=== PATIENT | male | born 1965 | race Caucasian/White ===

== ENCOUNTER 2018-04-30 02:03 | Emergency (ER) | payer OTHER ==
[~2018-04-30] VITALS: Ht 182.9 cm; Wt 100.6 kg
[2018-04-30] MEDS ORDERED: LIDOcaine Viscous 15ml cup PO ONE (02:30)
[2018-04-30] MEDS ORDERED: mag hydrox/Alum hydrox/simeth 30ml oral suspension PO ONE (02:30)
[2018-04-30 02:41] LABS: COLOR,URINE YELLOW (Yellow); GLUCOSE, URINE NEGATIVE (Neg); KETONES,URINE 15 mg/dl (Neg); LEUKOCYTE ESTERASE ,URINE NEGATIVE (Neg); NITRITES, URINE NEGATIVE (Neg); OCCULT BLOOD,URINE NEGATIVE (Neg); PROTEIN,URINE NEGATIVE (Neg); UROBILINOGEN,URINE 0.2 E.U/dL (0.2-1.0)
[2018-04-30 02:47] LABS: CLARITY,URINE TURBID (Clear); UA COLLECTION TYPE CLN CATCH MIDSTREAM
[2018-04-30 02:48] LABS: BASOPHILS % (AUTO) 0.2 % (0-1); EOSINOPHILS # (AUTO) 0.1 X10'3 (0-0.9); EOSINOPHILS % (AUTO) 1.2 % (0-6); HEMATOCRIT 45.7 % (42.0-52.0); LYMPHOCYTES # (AUTO) 1.3 X10'3 (1.1-4.8); LYMPHOCYTES % (AUTO) 15.1 % (21-51); MEAN CORPUSCULAR HEMOGLOBIN 30.2 PG (27.0-31.0); MEAN CORPUSCULAR HGB CONC 32.8 % (33.0-36.5); MEAN PLATELET VOLUME 9.1 FL (7.4-10.4); MONOCYTES # (AUTO) 0.4 X10'3 (0-0.9); MONOCYTES % (AUTO) 5.2 % (2-12); NEUTROPHILS # (AUTO) 6.7 X10'3 (1.8-7.7); NEUTROPHILS % (AUTO) 78.3 % (42-75); PLATELET COUNT 209 X10'3 (140-440); RED BLOOD COUNT 4.96 X10'6 (4.70-6.10); RED CELL DISTRIBUTION WIDTH 12.7 % (11.5-14.5); WHITE BLOOD COUNT 8.5 X10'3 (4.5-11.0)
[2018-04-30 02:49] LABS: AMORPHOUS PHOSPHATES 4+; BACTERIA,URINE FEW /HPF (Neg); MUCUS STRANDS MODERATE /LPF (Neg); RBC,URINE NONE SEEN /HPF (0-2); SQUAMOUS EPITHELIAL CELL,UR NONE SEEN /LPF (FEW); WBC,URINE NONE SEEN /HPF (0-4)
[2018-04-30 02:52] LABS: PROTHROMBIN TIME 10.6 SECONDS (9.0-12.0)
[2018-04-30 02:55] LABS: ALANINE AMINOTRANSFERASE 42 U/L (12-78); ALBUMIN 4.4 G/DL (3.4-5.0); ALBUMIN/GLOBULIN RATIO 1.2 (1.1-1.5); ALKALINE PHOSPHATASE 41 IU/L (46-116); ANION GAP 10 (8-16); ASPARTATE AMINO TRANSFERASE 28 U/L (10-37); BILIRUBIN,TOTAL 0.6 MG/DL (0.1-1.0); BLOOD UREA NITROGEN 23 MG/DL (7-18); BUN/CREATININE RATIO 23.2 (5.4-32.0); CALCIUM 9.2 MG/DL (8.5-10.1); CHLORIDE 102 MMOL/L (99-107); CREATININE 0.99 MG/DL (0.60-1.10); GLUCOSE 111 MG/DL (70-104); POTASSIUM 3.6 MMOL/L (3.5-5.1); SODIUM 142 MMOL/L (135-145); TOTAL CARBON DIOXIDE 29.7 MMOL/L (24-32); TOTAL PROTEIN 8.1 G/DL (6.4-8.2); eGFR 80 ML/MIN
[2018-04-30] MEDS ORDERED: famotidine/PF 10 mg/ml inj IV ONE (03:10)
[2018-04-30 03:23] LABS: LIPASE 319 U/L (73-393)
[2018-04-30] MEDS ORDERED: FAMO-128 PO (03:46)
[2018-04-30 04:05] VITALS: BP 138/83
[2018-04-30] MEDS ORDERED: ketorolac trometh. 30mg/ml inj. IV ONE (04:05)
== END 2018-04-30 05:00 | disposition home or self-care (01) ==
LOC: ER 02:03
DX: R10.84 Generalized abdominal pain (principal); R10.13 Epigastric pain; R14.0 Abdominal distension (gaseous)
CPT/HCPCS: 36415; 74018; 80053; 81001; 83690; 85025; 85610; 96374; 96375; 99284; J1885; J3490

== ENCOUNTER → 2018-06-14 | Outpatient (CLI) | payer BC, OTHER ==
[~2018-06-14] MED LIST: FAMO-128 PO
[2018-06-14 10:53] LABS: BASOPHILS % (AUTO) 0.3 % (0-1); EOSINOPHILS # (AUTO) 0.1 X10'3 (0-0.9); EOSINOPHILS % (AUTO) 1.7 % (0-6); HEMATOCRIT 43.9 % (42.0-52.0); HEMOGLOBIN 15.4 g/dl (14.0-17.9); LYMPHOCYTES # (AUTO) 1.3 X10'3 (1.1-4.8); LYMPHOCYTES % (AUTO) 27.5 % (21-51); MEAN CORPUSCULAR HEMOGLOBIN 31.4 PG (27.0-31.0); MEAN CORPUSCULAR VOLUME 89.7 FL (78-98); MEAN PLATELET VOLUME 8.5 FL (7.4-10.4); MONOCYTES # (AUTO) 0.4 X10'3 (0-0.9); MONOCYTES % (AUTO) 9.7 % (2-12); NEUTROPHILS # (AUTO) 2.8 X10'3 (1.8-7.7); NEUTROPHILS % (AUTO) 60.8 % (42-75); PLATELET COUNT 232 X10'3 (140-440); RED BLOOD COUNT 4.89 X10'6 (4.70-6.10); RED CELL DISTRIBUTION WIDTH 13.3 % (11.5-14.5); WHITE BLOOD COUNT 4.6 X10'3 (4.5-11.0)
[2018-06-14 10:56] LABS: ALANINE AMINOTRANSFERASE 31 U/L (12-78); ALBUMIN 4.1 G/DL (3.4-5.0); ALBUMIN/GLOBULIN RATIO 1.1 (1.1-1.5); ALKALINE PHOSPHATASE 46 IU/L (46-116); ANION GAP 6 (8-16); ASPARTATE AMINO TRANSFERASE 19 U/L (10-37); BILIRUBIN,TOTAL 0.8 MG/DL (0.1-1.0); BLOOD UREA NITROGEN 26 MG/DL (7-18); BUN/CREATININE RATIO 25.7 (5.4-32.0); CALCIUM 9.7 MG/DL (8.5-10.1); CHLORIDE 102 MMOL/L (99-107); CHOL/HDL RATIO 4.2 (0.00-4.99); CHOLESTEROL 233 MG/DL (0-200); CREATININE 1.01 MG/DL (0.60-1.10); GLUCOSE 88 MG/DL (70-104); HDL CHOLESTEROL 56 MG/DL (35-60); LDL CHOLESTEROL 172 MG/DL (50-100); LIPASE 216 U/L (73-393); POTASSIUM 4.4 MMOL/L (3.5-5.1); SODIUM 137 MMOL/L (135-145); TOTAL CARBON DIOXIDE 28.9 MMOL/L (24-32); TOTAL PROTEIN 7.8 G/DL (6.4-8.2); TRIGLYCERIDES 55 MG/DL (20-135); eGFR 78 ML/MIN
== END | disposition home or self-care (01) ==
LOC: LAB 10:12
PROVIDERS: ATTEND Family Medicine
DX: R10.13 Epigastric pain (principal); E78.5 Hyperlipidemia, unspecified; N42.9 Disorder of prostate, unspecified; Z87.891 Personal history of nicotine dependence
CPT/HCPCS: 36415; 80053; 80061; 83690; 84153; 85025

== ENCOUNTER 2018-07-25 09:17 | Day surgery (SDC) | payer BC ==
[~2018-07-25] VITALS: Ht 182.9 cm; Wt 90.9 kg
[2018-07-25 09:20] VITALS: BP 142/80
[2018-07-25] MEDS ORDERED: MIDAZolam 5mg/5ml vial ONE (09:32)
[2018-07-25] MEDS ORDERED: LIDOcaine Viscous 15ml cup ONE (09:32)
[2018-07-25] MEDS ORDERED: fentaNYL/PF 50MCG/1 ML 2ML syringe ONE (09:32)
[2018-07-25] MEDS ORDERED: FAMO-128 PO (09:45)
[2018-07-25] MEDS ORDERED: MULT1TAB74 PO (09:46)
[2018-07-25 10:31] VITALS: BP 112/75
[2018-07-25 10:41] VITALS: BP 119/70
[2018-07-25 10:51] VITALS: BP 129/89
== END 2018-07-25 11:02 | disposition home or self-care (01) ==
LOC: GI LAB 09:17
PROVIDERS: ATTEND Internal Medicine Gastroenterology
DX: Z12.11 Encounter for screening for malignant neoplasm of colon (principal); K63.5 Polyp of colon; K57.30 Diverticulosis of large intestine without perforation or abscess without bleeding; K44.9 Diaphragmatic hernia without obstruction or gangrene; K22.8 Other specified diseases of esophagus; K29.70 Gastritis, unspecified, without bleeding
CPT/HCPCS: 43239; 45380; 99152; 99153; J2250; J3010; J7030; 45385; A4620

== ENCOUNTER 2018-10-21 03:40 | Inpatient (IN) | payer BC, OTHER ==
[~2018-10-21] VITALS: Ht 188 cm; Wt 88.0 kg
[2018-10-21] VITALS (16 sets, daily range): BP systolic 99–149; BP diastolic 60–89
[~2018-10-21 03:40] MED LIST changes: +MULT1TAB74 PO
[2018-10-21] MEDS ORDERED: pantoprazole 40 MG vial IV ONE (04:00)
[2018-10-21] MEDS ORDERED: ondansetron/PF 4mg/2ml inj IV ONE (04:00)
[2018-10-21] MEDS ORDERED: normal saline 1000ML IV soln IVB ONE (04:00)
[2018-10-21] MEDS ORDERED: famotidine/PF 10 mg/ml inj IV ONE (04:00)
[2018-10-21] MEDS ORDERED: ESOMEPRAZOLE 40 MG VIAL IV ONE (04:05)
[2018-10-21 04:20] LABS: BASOPHILS % (AUTO) 0.2 % (0-1); EOSINOPHILS % (AUTO) 0.3 % (0-6); HEMATOCRIT 40.4 % (42.0-52.0); HEMOGLOBIN 13.7 g/dl (14.0-17.9); LYMPHOCYTES # (AUTO) 1.2 X10'3 (1.1-4.8); LYMPHOCYTES % (AUTO) 12.6 % (21-51); MEAN CORPUSCULAR HEMOGLOBIN 31.1 PG (27.0-31.0); MEAN CORPUSCULAR HGB CONC 33.8 g/dL (33.0-36.5); MEAN CORPUSCULAR VOLUME 91.9 FL (78-98); MEAN PLATELET VOLUME 8.1 FL (7.4-10.4); MONOCYTES # (AUTO) 0.5 X10'3 (0-0.9); MONOCYTES % (AUTO) 4.8 % (2-12); NEUTROPHILS % (AUTO) 82.1 % (42-75); PLATELET COUNT 262 X10'3 (140-440); RED CELL DISTRIBUTION WIDTH 13.6 % (11.5-14.5); WHITE BLOOD COUNT 9.7 X10'3 (4.5-11.0)
[2018-10-21 04:32] LABS: ALANINE AMINOTRANSFERASE 27 U/L (12-78); ALBUMIN 3.7 G/DL (3.4-5.0); ALKALINE PHOSPHATASE 44 IU/L (46-116); ANION GAP 8 (8-16); ASPARTATE AMINO TRANSFERASE 15 U/L (10-37); BILIRUBIN,TOTAL 0.4 MG/DL (0.1-1.0); BLOOD UREA NITROGEN 18 MG/DL (7-18); BUN/CREATININE RATIO 17.8 (5.4-32.0); CHLORIDE 103 MMOL/L (99-107); CREATININE 1.01 MG/DL (0.60-1.10); GLUCOSE 110 MG/DL (70-104); LIPASE 207 U/L (73-393); POTASSIUM 3.7 MMOL/L (3.5-5.1); SODIUM 139 MMOL/L (135-145); TOTAL CARBON DIOXIDE 27.9 MMOL/L (24-32); TOTAL PROTEIN 7.5 G/DL (6.4-8.2); eGFR 78 ML/MIN
[2018-10-21] MEDS ORDERED: NO HOME MEDS (04:50)
[2018-10-21] MEDS ORDERED: morphine 2 MG/ML inj. syringe IV PRN (05:00)
[2018-10-21] MEDS ORDERED: magnesium hydroxide 30ml (MOM) UD suspension PO PRN (05:00)
[2018-10-21] MEDS ORDERED: acetaminophen 325mg tablet PO PRN ×2 (05:00)
[2018-10-21] MEDS ORDERED: HYDROcodone/acetaminophen 10/325mg tab PO PRN ×2 (05:00→18:30)
[2018-10-21] MEDS ORDERED: mag hydrox/Alum hydrox/simeth 30ml oral suspension PO PRN (05:00)
[2018-10-21] MEDS ORDERED: ondansetron/PF 4mg/2ml inj IV PRN ×2 (05:00→16:45)
[2018-10-21] MEDS ORDERED: HYDROcodone/acetaminophen 5mg/325mg tablet PO PRN (05:00)
[2018-10-21] MEDS: morphine 2 MG/ML inj. syringe IV PRN ×2 (05:20→20:48)
[2018-10-21] MEDS: dextrose 5%-1/2 normal saline 1,000 ML IV SCH ×2 (05:21→14:56)
--- NOTE | 2018-10-21 06:33 | NUR ---
US TECH AT BEDSIDE WITH PT
--- NOTE | 2018-10-21 07:58 | NUR ---
report received by Ashley BARTLETT, awaiting pt arrival.
[2018-10-21] MEDS ORDERED: ceFOXitin 2 GM ADDVANTGE BAG 50 ML IV ONE (13:25)
--- NOTE | 2018-10-21 16:27 | NUR ---
pt has been taken to OR. No current issues, no complains of pain. Alert and oriented.
[2018-10-21] MEDS: ringers solution, lacted 1,000 ML IV SCH (16:45)
[2018-10-21] MEDS ORDERED: meperidine/PF 25mg/ml syringe IV PRN ×2 (16:45)
[2018-10-21] MEDS ORDERED: proCHLORperazine 10 MG/2 ml inj IV PRN (16:45)
[2018-10-21] MEDS ORDERED: ceFAZolin 1000mg inj ONE (16:45)
[2018-10-21] MEDS ORDERED: morphine 4 MG/ML inj SYRINge IV PRN ×2 (16:45)
[2018-10-21] MEDS ORDERED: BUPIVAcaine/PF 2.5 mg/ml (0.25%) 30ml vial ONE (16:45)
[2018-10-21] MEDS ORDERED: neostigmine methylsulfate 1 MG/ML 10ml vial ONE (17:05)
[2018-10-21] MEDS ORDERED: sevoflurane 250ml liquid IH ONE (17:05)
[2018-10-21] MEDS ORDERED: dexamethasone sod phosphate 10mg/ml inj ONE (17:05)
[2018-10-21] MEDS ORDERED: midazolam 2 mg/2 ml injection ONE (17:13)
[2018-10-21] MEDS ORDERED: fentaNYL/PF 50MCG/1 ML 2ML syringe ONE (17:13)
[2018-10-21] MEDS ORDERED: propofol inj 20 ML IV ONE (17:16)
[2018-10-21] MEDS ORDERED: LIDOcaine 2% (20mg/ml) 5ml vial ONE (17:16)
[2018-10-21] MEDS ORDERED: rocuronium 10mg/ml inj IV ONE (17:22)
[2018-10-21] MEDS ORDERED: ondansetron/PF 4mg/2ml inj ONE (17:23)
[2018-10-21] MEDS ORDERED: ketorolac trometh. 30mg/ml inj. ONE (18:03)
[2018-10-21] MEDS ORDERED: glycopyrrolate 0.2mg/ml inj ONE (18:13)
--- NOTE | 2018-10-21 18:23 | NUR ---
Received from OR via , accompanied by Anesthesiologist DR SANCHEZ and report given by Anesthesiolgist. AWAKENS TO VOICE. VITALS STABLE. DRESSINGS DI. C/O ABD PAIN. WILL MEDICATE. ABD SOFT.
[2018-10-21] MEDS: meperidine/PF 25mg/ml syringe IV PRN ×3 (18:27→19:00)
[2018-10-21] MEDS ORDERED: ketorolac tromethamine 15mg/ml inj. IV PRN (18:30)
--- NOTE | 2018-10-21 18:47 | NUR ---
Patient in room [facility]. I have received report from Latonya BARTLETT and had the opportunity to ask questions and assume patient care. Patient is currently in OR.
--- NOTE | 2018-10-21 18:53 | NUR ---
Pt still at OR, Prudence RN to take over care and get recovery report when ready.
--- NOTE | 2018-10-21 19:03 | NUR ---
Report called to receiving nurse. Transferred via BED Belongings . Special Issues communicated to receiving nurse. AWAKE AND ORIENTED. VITALS STABLE. DRESSINGS DI. STATES PAIN IMPROVING. TO SURGICAL RM 350B AT THIS TIME.
[2018-10-22] VITALS: BP 106/60
[2018-10-22] MEDS: dextrose 5%-1/2 normal saline 1,000 ML IV SCH ×2 (01:13→10:56)
[2018-10-22] MEDS: ringers solution, lacted 1,000 ML IV SCH (01:43)
[2018-10-22 05:47] LABS: BASOPHILS % (AUTO) 0.1 % (0-1); EOSINOPHILS % (AUTO) 0 % (0-6); HEMATOCRIT 36.7 % (42.0-52.0); HEMOGLOBIN 12.7 g/dl (14.0-17.9); LYMPHOCYTES % (AUTO) 9.1 % (21-51); MEAN CORPUSCULAR HEMOGLOBIN 31.6 PG (27.0-31.0); MEAN CORPUSCULAR HGB CONC 34.6 g/dL (33.0-36.5); MEAN CORPUSCULAR VOLUME 91.2 FL (78-98); MEAN PLATELET VOLUME 8.6 FL (7.4-10.4); MONOCYTES # (AUTO) 0.5 X10'3 (0-0.9); MONOCYTES % (AUTO) 4.9 % (2-12); NEUTROPHILS % (AUTO) 85.9 % (42-75); PLATELET COUNT 254 X10'3 (140-440); RED BLOOD COUNT 4.03 X10'6 (4.70-6.10); RED CELL DISTRIBUTION WIDTH 13.4 % (11.5-14.5); WHITE BLOOD COUNT 10.4 X10'3 (4.5-11.0)
[2018-10-22 06:08] LABS: ALANINE AMINOTRANSFERASE 24 U/L (12-78); ALBUMIN 2.7 G/DL (3.4-5.0); ALBUMIN/GLOBULIN RATIO 0.8 (1.1-1.5); ALKALINE PHOSPHATASE 36 IU/L (46-116); ANION GAP 8 (8-16); ASPARTATE AMINO TRANSFERASE 14 U/L (10-37); BILIRUBIN,TOTAL 0.4 MG/DL (0.1-1.0); BLOOD UREA NITROGEN 9 MG/DL (7-18); BUN/CREATININE RATIO 10.6 (5.4-32.0); CALCIUM 8.1 MG/DL (8.5-10.1); CHLORIDE 106 MMOL/L (99-107); CREATININE 0.85 MG/DL (0.60-1.10); GLUCOSE 133 MG/DL (70-104); POTASSIUM 3.9 MMOL/L (3.5-5.1); SODIUM 140 MMOL/L (135-145); TOTAL CARBON DIOXIDE 26.1 MMOL/L (24-32); eGFR > 90 ML/MIN
--- NOTE | 2018-10-22 06:26 | NUR ---
Problems reprioritized. Patient report given, questions answered & plan of care reviewed with Latonya BARTLETT. Patient walked 600 feet and stated he is feeling much better.
[2018-10-22 07:00] VITALS: BP 114/70
[2018-10-22] MEDS ORDERED: HYDR-3972 PO (11:36)
[2018-10-22 12:09] VITALS: BP 113/70
--- NOTE | 2018-10-22 13:53 | NUR ---
Pt discharged home with . No current issues. Maple prescription given. Pt will f/u with Dr Canales in 1 wk and will come to ER if any emergent issues. IV taken out. No tele.
== END 2018-10-22 13:14 | disposition home or self-care (01) | DRG 419 ==
LOC: ER 03:41 → SUR 3N 06:42 → CMPBEDREQ 19:48
PROVIDERS: ADMIT Internal Medicine; ATTEND Internal Medicine
PROC: 0FT44ZZ Resection of Gallbladder, Percutaneous Endoscopic Approach (ICD-10-PCS; principal; 2018-10-21 17:05)
DX: K80.00 Calculus of gallbladder with acute cholecystitis without obstruction (principal); D64.9 Anemia, unspecified
CPT/HCPCS: 96361; 96374; 96375; 99285; Z7506; Z7508; 36415; 76700; 80053; 82948; 83690; 85025; 85610; 86885; 86900; 86901; 87081; 93005; A7000; G0378; J0690; J0694; J1100; J1885; J2001; J2175; J2250; J2270; J2405; J2704; J2710; J3010; J3490; J7030; J7120

== ENCOUNTER 2021-12-20 11:21 | Emergency (ER) | payer BC ==
[~2021-12-20] VITALS: Ht 182.9 cm; Wt 104.5 kg
[~2021-12-20 11:21] MED LIST changes: -FAMO-128 PO; +HYDR-3972 PO; -MULT1TAB74 PO
[2021-12-20] MEDS ORDERED: sildenafil citrate 20mg tablet PO ONE (11:30)
[2021-12-20] MEDS ORDERED: normal saline 1000ML IV soln IVB ONE (11:30)
[2021-12-20] MEDS ORDERED: ketorolac trometh. 30mg/ml inj. IV ONE (11:30)
[2021-12-20] MEDS ORDERED: meperidine/PF 50mg/ml syringe IV ONE (11:30)
[2021-12-20 11:44] LABS: BASOPHILS % (AUTO) 0.6 % (0-1); EOSINOPHILS # (AUTO) 0.1 X10'3 (0-0.9); EOSINOPHILS % (AUTO) 1.6 % (0-6); HEMATOCRIT 43.6 % (42.0-52.0); HEMOGLOBIN 15.1 g/dl (14.0-17.9); LYMPHOCYTES # (AUTO) 1.4 X10'3 (1.1-4.8); LYMPHOCYTES % (AUTO) 23.2 % (21-51); MEAN CORPUSCULAR HEMOGLOBIN 31.3 PG (27.0-31.0); MEAN CORPUSCULAR HGB CONC 34.5 g/dL (33.0-36.5); MEAN CORPUSCULAR VOLUME 90.8 FL (78-98); MEAN PLATELET VOLUME 8.4 FL (7.4-10.4); MONOCYTES # (AUTO) 0.6 X10'3 (0-0.9); MONOCYTES % (AUTO) 10.3 % (2-12); NEUTROPHILS # (AUTO) 3.8 X10'3 (1.8-7.7); NEUTROPHILS % (AUTO) 64.3 % (42-75); PLATELET COUNT 225 X10'3 (140-440); RED BLOOD COUNT 4.81 X10'6 (4.70-6.10); RED CELL DISTRIBUTION WIDTH 13.6 % (11.5-14.5); WHITE BLOOD COUNT 5.9 X10'3 (4.5-11.0)
[2021-12-20 12:03] LABS: ALANINE AMINOTRANSFERASE 71 U/L (12-78); ALBUMIN 4.2 G/DL (3.4-5.0); ALBUMIN/GLOBULIN RATIO 1.2 (1.1-1.5); ALKALINE PHOSPHATASE 43 IU/L (46-116); ANION GAP 9 (8-16); ASPARTATE AMINO TRANSFERASE 34 U/L (10-37); BILIRUBIN,TOTAL 0.5 MG/DL (0.1-1.0); BLOOD UREA NITROGEN 24 MG/DL (7-18); BUN/CREATININE RATIO 20.9 (5.4-32.0); CALCIUM 9.5 MG/DL (8.5-10.1); CHLORIDE 103 MMOL/L (99-107); CREATININE 1.15 MG/DL (0.60-1.10); GLUCOSE 101 MG/DL (70-104); POTASSIUM 4.2 MMOL/L (3.5-5.1); SODIUM 140 MMOL/L (135-145); TOTAL CARBON DIOXIDE 28.4 MMOL/L (24-32); TOTAL PROTEIN 7.8 G/DL (6.4-8.2); eGFR 66 ML/MIN
[2021-12-20] MEDS ORDERED: ketorolac trometh inj. 60 MG/2 ML VIAL IM ONE (13:45)
[2021-12-20 14:26] LABS: CLARITY,URINE CLEAR (Clear); COLOR,URINE YELLOW (Yellow); GLUCOSE, URINE NEGATIVE (Neg); KETONES,URINE NEGATIVE (Neg); LEUKOCYTE ESTERASE ,URINE NEGATIVE (Neg); NITRITES, URINE NEGATIVE (Neg); OCCULT BLOOD,URINE SMALL (Neg); PROTEIN,URINE NEGATIVE (Neg); UROBILINOGEN,URINE 0.2 E.U/dL (0.2-1.0)
[2021-12-20 14:30] LABS: UA COLLECTION TYPE CLN CATCH MIDSTREAM
[2021-12-20 14:34] LABS: WBC,URINE 0-4 /HPF (0-4)
[2021-12-20 14:35] LABS: BACTERIA,URINE NONE SEEN /HPF (Neg)
[2021-12-20 14:36] LABS: MUCUS STRANDS MODERATE /LPF (Neg); SQUAMOUS EPITHELIAL CELL,UR FEW /LPF (FEW)
[2021-12-20 14:37] VITALS: BP 114/78
[2021-12-20] MEDS ORDERED: FLO0.4C PO ×2 (15:10)
[2021-12-20] MEDS ORDERED: HYDR-3965 PO ×2 (15:22)
[2021-12-21] MEDS ORDERED: fentaNYL/PF 50MCG/1 ML 2ML syringe ONE (14:48)
[2021-12-21] MEDS ORDERED: ondansetron/PF 4mg/2ml inj ONE (15:26)
[2021-12-21] MEDS ORDERED: dexamethasone sod phosphate 4mg/ml inj. ONE (15:27)
[2021-12-21] MEDS ORDERED: propofol inj 20 ML IV ONE (15:28)
[2021-12-21] MEDS ORDERED: FLO0.4C PO (15:46)
== END 2021-12-20 15:23 | disposition home or self-care (01) ==
LOC: EEVIPCON 11:21 → MERGE 11:21 → ER 11:21
DX: N23 Unspecified renal colic (principal); Z90.49 Acquired absence of other specified parts of digestive tract; Z79.899 Other long term (current) drug therapy
CPT/HCPCS: 36415; 74018; 74176; 80053; 81001; 85025; 96372; 99285; J1885; J7030; J1100; J2405; J2704; J3010

== ENCOUNTER 2021-12-21 05:11 | Inpatient (IN) | payer BC, OTHER ==
[2021-12-21] VITALS (16 sets, daily range): BP systolic 94–119; BP diastolic 55–74
[~2021-12-21] VITALS: Ht 188 cm; Wt 104.5 kg
[~2021-12-21 05:11] MED LIST changes: +FLO0.4C PO; +HYDR-3965 PO
[2021-12-21] MEDS ORDERED: morphine 4 MG/ML inj SYRINge IV ONE (05:30)
[2021-12-21] MEDS ORDERED: ondansetron/PF 4mg/2ml inj IV ONE (05:30)
[2021-12-21] MEDS ORDERED: ketorolac trometh. 30mg/ml inj. IV ONE (05:30)
[2021-12-21 06:00] LABS: BASOPHILS % (AUTO) 0.2 % (0-1); EOSINOPHILS % (AUTO) 0.4 % (0-6); LYMPHOCYTES # (AUTO) 0.7 X10'3 (1.1-4.8); LYMPHOCYTES % (AUTO) 6.3 % (21-51); MEAN CORPUSCULAR HEMOGLOBIN 31.1 PG (27.0-31.0); MEAN CORPUSCULAR HGB CONC 34.1 g/dL (33.0-36.5); MEAN CORPUSCULAR VOLUME 91.4 FL (78-98); MEAN PLATELET VOLUME 8.7 FL (7.4-10.4); MONOCYTES # (AUTO) 0.8 X10'3 (0-0.9); MONOCYTES % (AUTO) 6.9 % (2-12); NEUTROPHILS # (AUTO) 9.9 X10'3 (1.8-7.7); NEUTROPHILS % (AUTO) 86.2 % (42-75); PLATELET COUNT 182 X10'3 (140-440); RED BLOOD COUNT 4.49 X10'6 (4.70-6.10); RED CELL DISTRIBUTION WIDTH 13.5 % (11.5-14.5); WHITE BLOOD COUNT 11.5 X10'3 (4.5-11.0)
[2021-12-21 06:15] LABS: ALANINE AMINOTRANSFERASE 63 U/L (12-78); ALBUMIN 3.9 G/DL (3.4-5.0); ALBUMIN/GLOBULIN RATIO 1.1 (1.1-1.5); ALKALINE PHOSPHATASE 40 IU/L (46-116); ANION GAP 10 (8-16); ASPARTATE AMINO TRANSFERASE 33 U/L (10-37); BILIRUBIN,TOTAL 0.6 MG/DL (0.1-1.0); BLOOD UREA NITROGEN 29 MG/DL (7-18); BUN/CREATININE RATIO 19.3 (5.4-32.0); CALCIUM 8.8 MG/DL (8.5-10.1); CHLORIDE 104 MMOL/L (99-107); GLUCOSE 139 MG/DL (70-104); POTASSIUM 3.4 MMOL/L (3.5-5.1); SODIUM 140 MMOL/L (135-145); TOTAL CARBON DIOXIDE 26.3 MMOL/L (24-32); TOTAL PROTEIN 7.4 G/DL (6.4-8.2); eGFR 49 ML/MIN
[2021-12-21] MEDS ORDERED: morphine 10mg/ml inj. IV ONE ×2 (06:30→06:45)
[2021-12-21] MEDS ORDERED: magnesium 2GM in 50ml NS 50 ML IV PRN (08:40)
[2021-12-21] MEDS ORDERED: magnesium hydroxide 30ml (MOM) UD suspension PO PRN (08:40)
[2021-12-21] MEDS ORDERED: magnesium Cl slow-release 64mg tablet PO PRN (08:40)
[2021-12-21] MEDS ORDERED: POTASSIUM BICARB 20meq eff tab 20 MEQ TABLET.EFF PO PRN (08:40)
[2021-12-21] MEDS ORDERED: magnesium 4gm in 100ml NS 100 ML IV PRN (08:40)
[2021-12-21] MEDS ORDERED: morphine 2 MG/ML inj. syringe IV PRN ×3 (08:40→14:45)
[2021-12-21] MEDS ORDERED: ondansetron/PF 4mg/2ml inj IV PRN ×2 (08:40→14:45)
[2021-12-21] MEDS ORDERED: acetaminophen 325mg tablet PO PRN (08:40)
[2021-12-21] MEDS ORDERED: potassium CL 10mEq/100ml bag 100 ML IV PRN (08:40)
[2021-12-21] MEDS ORDERED: mag hydrox/Alum hydrox/simeth 30ml oral suspension PO PRN (08:40)
[2021-12-21 08:57] LABS: MAGNESIUM 1.9 MG/DL (1.5-2.4)
[2021-12-21] MEDS: dextrose 5%-1/2 normal saline 1,000 ML IV SCH ×2 (09:02→18:38)
[2021-12-21] MEDS: CefTRIAXone/D5W-Rocephin 1gm 50 ML IV SCH (09:51)
--- NOTE | 2021-12-21 10:32 | NUR ---
RECD REPORT FROM SHERRILL IN ER
--- NOTE | 2021-12-21 10:36 | NUR ---
shift report given to TRI Alonso. Pt will have left renal stent procedure in the afternoon. D5 0.45NS running at 100 ml/hr. Pt is NPO.
[2021-12-21 13:01] LABS: CLARITY,URINE SLIGHTLY CLOUDY (Clear); COLOR,URINE YELLOW (Yellow); GLUCOSE, URINE NEGATIVE (Neg); KETONES,URINE TRACE mg/dl (Neg); LEUKOCYTE ESTERASE ,URINE NEGATIVE (Neg); NITRITES, URINE NEGATIVE (Neg); OCCULT BLOOD,URINE LARGE (Neg); PH,URINE 5.5 (4.8-8.0); PROTEIN,URINE TRACE mg/dl (Neg); UROBILINOGEN,URINE 0.2 E.U/dL (0.2-1.0)
[2021-12-21 14:05] LABS: UA COLLECTION TYPE CLN CATCH MIDSTREAM
[2021-12-21 14:11] LABS: MUCUS STRANDS FEW /LPF (Neg); SQUAMOUS EPITHELIAL CELL,UR FEW /LPF (FEW)
[2021-12-21 14:12] LABS: BACTERIA,URINE FEW /HPF (Neg); RBC,URINE TNTC /HPF (0-2)
[2021-12-21 14:16] LABS: PRE OP INR 1.1 INR
[2021-12-21] MEDS ORDERED: morphine 4 MG/ML inj SYRINge IV PRN (14:45)
[2021-12-21] MEDS ORDERED: labetalol 20mg/4ml (5mg/ml) syringe IV PRN (14:45)
[2021-12-21] MEDS ORDERED: ringers solution, lacted 1,000 ML IV SCH (14:45)
[2021-12-21] MEDS ORDERED: hydrALAZINE 20mg/ml inj. IV PRN (14:45)
[2021-12-21] MEDS ORDERED: fentaNYL/PF 50MCG/1 ML 2ML syringe IV PRN ×2 (14:45)
[2021-12-21] MEDS ORDERED: FLO0.4C PO (15:46)
--- NOTE | 2021-12-21 15:55 | NUR ---
Received from OR via , accompanied by Anesthesiologist and report given by Anesthesiolgist.PATIENT WAKING UP DENIES PAIN OR NEEDS , V/S STABLE, CSM INTACT, SCD ON, CYSTO STENT RIGHT URETHRAL NO S/S OF COMPLICATION OR BLEEDING TO SURGICAL SITE. 20G RUE
[2021-12-21] MEDS ORDERED: iohexol 350 MG/ML 50ML vial IV ONE (15:58)
--- NOTE | 2021-12-21 16:35 | NUR ---
PATIENT A&OX4, DENIES PAIN , V/S STABLE, CSM INTACT, SCD ON, CYSTO STENT LEFT URETHRAL NO S/S OF COMPLICATION OR BLEEDING TO SURGICAL SITE. 20G RUE. PATIENT TAKEN TO 4018 WITH ALL BELONGINGS AND HOOKED UP TO MONITORS IN ROOM AND REPORT GIVEN TO RN WHO HAS TAKEN OVER PATIENT CARE.
--- NOTE | 2021-12-21 18:01 | NUR ---
PAGED DR BHATT RE: PAGER ID: [phone] MESSAGE: RACHEL DELGADO. PT STATES THAT THE SURGEON TOLD HIM THE HOSPITALIST WILL COME BY AND SEE HIM AND HE COULD GO HOME TONIGHT. DEL RIO 5098 O/N
--- NOTE | 2021-12-21 18:45 | NUR ---
Problems reprioritized. Patient report given, questions answered & plan of care reviewed with PAT RN.
--- NOTE | 2021-12-21 19:00 | NUR ---
pt educated to save urine to be stained Addendum: 12/22/21 at 0009 by Mari Chavez RN Amended: Links added.
[2021-12-21] MEDS: K and/or MAG REPLACEMENT MC SCH (20:00)
[2021-12-21] MEDS: docusate sod 100mg capsule PO SCH (20:34)
[2021-12-21] MEDS: POTASSIUM BICARB 20meq eff tab 20 MEQ TABLET.EFF PO PRN (20:35)
[2021-12-22] MEDS: POTASSIUM BICARB 20meq eff tab 20 MEQ TABLET.EFF PO PRN (00:30)
[2021-12-22 02:00] VITALS: BP 97/49
[2021-12-22] MEDS: dextrose 5%-1/2 normal saline 1,000 ML IV SCH (04:59)
[2021-12-22 06:00] VITALS: BP 99/55
[2021-12-22 06:15] LABS: BASOPHILS % (AUTO) 0.1 % (0-1); EOSINOPHILS % (AUTO) 0.1 % (0-6); HEMATOCRIT 38.2 % (42.0-52.0); HEMOGLOBIN 13.1 g/dl (14.0-17.9); LYMPHOCYTES # (AUTO) 0.8 X10'3 (1.1-4.8); MEAN CORPUSCULAR HEMOGLOBIN 31.3 PG (27.0-31.0); MEAN CORPUSCULAR HGB CONC 34.4 g/dL (33.0-36.5); MEAN CORPUSCULAR VOLUME 91.2 FL (78-98); MEAN PLATELET VOLUME 8.9 FL (7.4-10.4); MONOCYTES # (AUTO) 0.7 X10'3 (0-0.9); MONOCYTES % (AUTO) 6.5 % (2-12); NEUTROPHILS # (AUTO) 9.7 X10'3 (1.8-7.7); NEUTROPHILS % (AUTO) 86.3 % (42-75); PLATELET COUNT 192 X10'3 (140-440); RED BLOOD COUNT 4.19 X10'6 (4.70-6.10); RED CELL DISTRIBUTION WIDTH 13.9 % (11.5-14.5); WHITE BLOOD COUNT 11.2 X10'3 (4.5-11.0)
--- NOTE | 2021-12-22 06:26 | NUR ---
Patient in room [facility] 4018. I have received report from TRI Weir and had the opportunity to ask questions and assume patient care.
[2021-12-22 06:36] LABS: ALANINE AMINOTRANSFERASE 48 U/L (12-78); ALBUMIN 3.3 G/DL (3.4-5.0); ALBUMIN/GLOBULIN RATIO 1.1 (1.1-1.5); ALKALINE PHOSPHATASE 34 IU/L (46-116); ANION GAP 9 (8-16); ASPARTATE AMINO TRANSFERASE 23 U/L (10-37); BILIRUBIN,TOTAL 0.4 MG/DL (0.1-1.0); BLOOD UREA NITROGEN 21 MG/DL (7-18); BUN/CREATININE RATIO 22.1 (5.4-32.0); CALCIUM 8.4 MG/DL (8.5-10.1); CHLORIDE 106 MMOL/L (99-107); CREATININE 0.95 MG/DL (0.60-1.10); GLUCOSE 139 MG/DL (70-104); POTASSIUM 4.3 MMOL/L (3.5-5.1); SODIUM 140 MMOL/L (135-145); TOTAL CARBON DIOXIDE 24.6 MMOL/L (24-32); TOTAL PROTEIN 6.4 G/DL (6.4-8.2); eGFR 83 ML/MIN
[2021-12-22] MEDS ORDERED: enoxaparin 40mg/0.4ml syringe SUBCUT SCH (08:00)
[2021-12-22] MEDS: K and/or MAG REPLACEMENT MC SCH (08:00)
[2021-12-22] MEDS: docusate sod 100mg capsule PO SCH (08:18)
[2021-12-22] MEDS: CefTRIAXone/D5W-Rocephin 1gm 50 ML IV SCH (08:23)
[2021-12-22 10:00] VITALS: BP 118/67
--- NOTE | 2021-12-22 11:00 | NUR ---
I have reviewed and agree with interventions, assessments performed, and documention by Shayna Healy LVN.
[2021-12-22] MEDS ORDERED: CIPR-202 PO (11:46)
--- NOTE | 2021-12-22 12:20 | NUR ---
Patient discharge home with family with all belongings. Discharge information was provided and reviewed with patient who verbalize understanding.
== END 2021-12-22 12:15 | disposition home or self-care (01) | DRG 661 ==
LOC: ER 05:11 → ED HOLD 08:45 → ORTHO 4S 10:39
PROVIDERS: ADMIT Internal Medicine; ATTEND Internal Medicine
PROC: BT1F1ZZ Fluoroscopy of Left Kidney, Ureter and Bladder using Low Osmolar Contrast (ICD-10-PCS; 2021-12-21)
PROC: 0T778DZ Dilation of Left Ureter with Intraluminal Device, Via Natural or Artificial Opening Endoscopic (ICD-10-PCS; principal; 2021-12-21 15:10)
DX: N13.2 Hydronephrosis with renal and ureteral calculous obstruction (principal); E87.6 Hypokalemia; Z20.822 Contact with and (suspected) exposure to COVID-19; N17.9 Acute kidney failure, unspecified; N28.1 Cyst of kidney, acquired; N32.89 Other specified disorders of bladder; Z79.899 Other long term (current) drug therapy
CPT/HCPCS: 96374; 96375; 96376; 99285; Z7506; 36415; 74018; 74420; 76000; 80053; 81001; 82948; 83735; 85025; 85610; 85730; 87088; 87635; 93005; A4615; A4618; C2617; C9803; G0378; J0696; J1885; J2270; J2274; J2405; J7030; J7042; Q9967

== ENCOUNTER 2023-09-24 19:32 | Emergency (ER) | payer BC ==
[~2023-09-24] VITALS: Ht 182.9 cm; Wt 100.0 kg
[~2023-09-24 19:32] MED LIST changes: -HYDR-3965 PO; -HYDR-3972 PO
[2023-09-24 19:42] VITALS: TEMP 98
[2023-09-24 20:16] LABS: BASOPHILS % (AUTO) 0.3 % (0-1); EOSINOPHILS # (AUTO) 0.1 X10'3 (0-0.9); HEMATOCRIT 41.1 % (42.0-52.0); HEMOGLOBIN 14.2 g/dl (14.0-17.9); LYMPHOCYTES # (AUTO) 1.8 X10'3 (1.1-4.8); LYMPHOCYTES % (AUTO) 25.1 % (21-51); MEAN CORPUSCULAR HEMOGLOBIN 31.4 PG (27.0-31.0); MEAN CORPUSCULAR HGB CONC 34.5 g/dL (33.0-36.5); MEAN PLATELET VOLUME 8.8 FL (7.4-10.4); MONOCYTES # (AUTO) 0.8 X10'3 (0-0.9); MONOCYTES % (AUTO) 10.5 % (2-12); NEUTROPHILS # (AUTO) 4.6 X10'3 (1.8-7.7); NEUTROPHILS % (AUTO) 63.1 % (42-75); PLATELET COUNT 218 X10'3 (140-440); RED BLOOD COUNT 4.51 X10'6 (4.70-6.10); RED CELL DISTRIBUTION WIDTH 13.3 % (11.5-14.5); WHITE BLOOD COUNT 7.3 X10'3 (4.5-11.0)
[2023-09-24] MEDS: normal saline 1000ml 1,000 ML IV ONE (20:18)
[2023-09-24 20:19] LABS: APTT 26 SECONDS (22-32); PROTHROMBIN TIME 11.2 SECONDS (9.0-12.0)
[2023-09-24 20:29] LABS: ALBUMIN 3.7 G/DL (3.4-5.0); ANION GAP 10 (8-16); BLOOD UREA NITROGEN 23 MG/DL (7-18); BUN/CREATININE RATIO 19.7 (10.0-20.0); CALCIUM 9.2 MG/DL (8.5-10.1); CHLORIDE 103 MMOL/L (99-107); CREATININE 1.17 MG/DL (0.60-1.10); GLUCOSE 96 MG/DL (70-104); POTASSIUM 3.7 MMOL/L (3.5-5.1); PRO BRAIN NATRIURETIC PEPTIDE 1165 PG/ML (0-125); SODIUM 138 MMOL/L (135-145); TOTAL CARBON DIOXIDE 24.8 MMOL/L (24-32); eCRCL 77 ML/MIN; eGFR 64 ML/MIN
[2023-09-24] MEDS: diltiazem 5mg/ml 5ml inj. IV ONE ×3 (21:03→22:25)
[2023-09-24] MEDS: propofol 10mg/ml 20ml vial IV ONE (23:09)
[2023-09-25 03:00] VITALS: BP 115/77; PULSE 59; RESP 14; O2SAT 99
== END 2023-09-25 03:06 | disposition home or self-care (01) ==
LOC: ER 19:32
DX: I48.91 Unspecified atrial fibrillation (principal); Z87.442 Personal history of urinary calculi; Z79.899 Other long term (current) drug therapy
CPT/HCPCS: 36415; 71045; 80048; 83880; 84484; 85025; 85610; 85730; 92960; 93005; 96361; 96374; 96376; 99285; J3490; J7030; A4620